=== PATIENT | male | born 1965 | race Caucasian/White ===

== ENCOUNTER 2017-03-12 05:40 | Emergency (ER) | payer MEDICAID, OTHER ==
[~2017-03-12] VITALS: Ht 165.1 cm; Wt 77.5 kg
[2017-03-12 05:43] VITALS: Ht 165.1 cm; Wt 77.5 kg
[2017-03-12 07:29] LABS: ADD UMIC YES; UR ASCORBIC ACID NEGATIVE (NEGATIVE); UR BILIRUBIN (Dip) NEGATIVE (NEGATIVE); UR BLOOD (Dip) 1+ mg/dL (NEGATIVE); UR CLARITY CLEAR (CLEAR); UR COLOR YELLOW (YELLOW); UR GLUCOSE (Dip) NEGATIVE (NEGATIVE); UR KETONES (Dip) NEGATIVE (NEGATIVE); UR LEUKOCYTE ESTERASE (Dip) NEGATIVE Leu/ul (NEGATIVE); UR NITRITE (Dip) NEGATIVE (NEGATIVE); UR RBC 0 /HPF (0-5); UR SPECIFIC GRAVITY (Dip) 1.027 (1.003-1.030); UR TOTAL PROTEIN (Dip) NEGATIVE (NEGATIVE); UR UROBILINOGEN (Dip) NEGATIVE (NEGATIVE)
[2017-03-12] MEDS ORDERED: PHEN-538 PO (07:46)
--- NOTE | 2017-03-12 07:58 | ERD ---
ER Documentation Chief Complaint Date/Time DATE: 03/12/17 TIME: 07:58 Chief Complaint PT reports pain with urination for 2 months seen by pcp 1 month ago HPI 51-year-old male with history of painful urination for the past 2 months presents stating that he would like a referral to see a urologist. Patient states that one month prior to being seen he saw his primary care physician who gave him a referral however since time has passed and he never went to the urologist he needs another referral. Patient denies any fevers,Abdominal pain, flank pain, hematuria. He denies any prostate conditions. ROS All systems reviewed and are negative except as per history of present illness. Medications Home Meds Active Scripts Phenazopyridine Hcl* (Pyridium*) 200 Mg Tab, 200 MG PO TID Y for URINARY PAIN, # 15 TAB Prov:GREGORY PAL PA-C 03/12/17 Allergies Allergies: Coded Allergies: No Known Allergy (Unverified , 03/12/17) PMhx/Soc Medical and Surgical Hx: pt denies Medical Hx, pt denies Surgical Hx Hx Alcohol Use: No Hx Substance Use: No Hx Tobacco Use: No Smoking Status: Never smoker Physical Exam Vitals Vital Signs Date Time Temp Pulse Resp B/P Pulse Ox O2 Delivery O2 Flow Rate FiO2 03/12/17 05:43 98.3 65 16 135/88 98 Physical Exam Const: [] Head: Atraumatic Eyes: Normal Conjunctiva ENT: Normal External Ears, Nose and Mouth. Neck: Full range of motion..~ No meningismus. Resp: Clear to auscultation bilaterally Cardio: Regular rate and rhythm, no murmurs Abd: Soft, non tender, non distended. Normal bowel sounds Skin: No petechiae or rashes Back: No midline or flank tenderness Ext: No cyanosis, or edema Neur: Awake and alert Psych: Normal Mood and Affect Results 24 hrs Laboratory Tests Test 03/12/17 06:27 Urine Color YELLOW Urine Clarity CLEAR Urine pH 5.0 Urine Specific [place] 1.027 Urine Ketones NEGATIVEmg/dL Urine Nitrite NEGATIVEmg/dL Urine Bilirubin NEGATIVEmg/dL Urine Urobilinogen NEGATIVEmg/dL Urine Leukocyte Esterase NEGATIVELeu/ul Urine Microscopic RBC 0/HPF Urine Microscopic WBC 1/HPF Urine Hemoglobin 1+mg/dL Urine Glucose NEGATIVEmg/dL Urine Total Protein NEGATIVEmg/dl Procedures/MDM 51-year-old male presents to the emergency room with chief complaint of dysuria for the past 2 months. Differentials include but not limited to prostatitis, urethritis, epididymitis, urinary tract infections. Urinalysis was done in the ED did not show any evidence of infection. Patient is stable to be discharged to follow-up with his primary care physician to get another referral to see urologist. I have discussed with him to return to the emergency room for any worsening signs or symptoms. He understands and agrees with this plan Departure Diagnosis: Primary Impression: Dysuria Condition: Stable Patient Instructions: Dysuria Referrals: NO PRIMARY,CARE PHYSICIAN (PCP) Additional Instructions: Visite a milligan mdico maana para un EXAMEN.Regrese a estas instalaciones si no se mejora jessica esperbamos o jessica le dijimos.Specialist:Usted tiene tim condicin m dica que requiere que grupo a un especialista dentro de los prximos 1-2 d as.POR FAVOR,CON MILLIGAN SEGUIMIENTO DE PRIMARIA PHSICIAN refferal. SI USTED NO TIENE UN MDICO GENERAL Y / O USTED NO PUEDE PAGAR leslie a un mdico,los siguientes martin RECURSOS sido suministrado a usted. ES MILLIGAN RESPONSABILIDAD PARA SER VISTOS POR EL ESPECIALISTA: [place] toda la medicina sharri y jessica se le indic. GREGORY PAL PA-C Mar 12, 2017 07:58
== END 2017-03-12 08:12 | disposition home or self-care (01) ==
LOC: FTE 05:40
DX: R30.0 Dysuria (principal)
CPT/HCPCS: 81001; 87086; 87591; Z7502; 99283